=== PATIENT | male | born 1980 | race Caucasian/White ===

== ENCOUNTER 2017-10-14 10:06 | Emergency (ER) | payer OTHER ==
[~2017-10-14] VITALS: Ht 177.8 cm; Wt 86.2 kg
[2017-10-14 11:46] LABS: ABSOLUTE BASOPHIL COUNT 0.1 /CUMM (0.0-0.2); ABSOLUTE EOSINOPHIL COUNT 0.2 /CUMM (0.0-0.7); ABSOLUTE GRANULOCYTE CT 4.4 /CUMM (1.4-6.5); ABSOLUTE MONOCYTE COUNT 0.7 /CUMM (0.10-0.60); BASOPHIL % 0.9 % (0.0-2.0); EOSINOPHIL % 2.8 % (0-5); GRANULOCYTE % 69.1 % (42.2-75.2); HEMATOCRIT 33.6 % (42-52); MEAN CORPUSCULAR HGB CONC 34.6 G/DL (33.0-37.0); MEAN CORPUSCULAR VOLUME 89.7 FL (80.0-94.0); MEAN PLATELET VOLUME 6.8 FL (7.4-10.4); PLATELET COUNT 299 /CUMM (130-400); RBC DISTRIBUTION WIDTH 12.9 % (11.5-14.5); RED BLOOD CELL CT 3.75 /CUMM (4.70-6.10); WHITE BLOOD CELL COUNT 6.4 /CUMM (4.8-10.8)
--- NOTE | 2017-10-14 11:53 | ED NEURO DEFICIT/STROKE ---
History of Present Illness General Chief Complaint: General Adult Stated Complaint: MIGRAINE,ELEVATED BP PER PT Vital Signs & Intake/Output Vital Signs & Intake/Output Vital Signs Date Time Temp Pulse Resp B/P B/P Pulse O2 O2 Flow FiO2 Mean Ox Delivery Rate 10/14 1010 98.6 78 18 196/130 98 Room Air Allergies Coded Allergies: MDX - No Known Allergies - Nka (NO KNOWN ALLERGIES - NKA) (01/17/12) Triage Note: 37 YO MALE TO TRIAGE C/O HIGH BP SINCE THIS AM. STATES HE TAKES LABETOL, STATES TOOK DOSE THIS AM. BP 196/130 IN TRIAGE. DENIES BLURRY VISION. C/O HEADACHE. DENIES CHEST PAIN. Past History Travel History Traveled to [place] past 21 day No Medical History Cardiovascular: hypertension, hyperlipidemia Psychiatric: anxiety Tetanus Vaccine: 02/12/12 Surgical History Surgical History: non-contributory Psychosocial History What is your primary language Pakistani Tobacco Use: Never used Progress Plan of Care: Orders Procedure Date/time Status CT HEAD WO IV CONTRAST 10/14 1152 Active URINALYSIS 10/14 1126 Active TROPONIN LEVEL 10/14 1126 Active COMPREHENSIVE METABOLIC PANEL 10/14 1126 Active CBC WITHOUT DIFFERENTIAL 10/14 1126 Complete EKG 10/14 1010 Active Current Medications Sig/Micah Start time Last Medication Dose Stop Time Status Admin Labetalol HCl 10 MG ONCE ONE 10/14 1200 UNVr (Trandate) 10/14 1201 Laboratory Tests 10/14/17 1149: Urine Color Pending, Urine Clarity Pending, Urine pH Pending, Ur Specific [place] Pending, Urine Protein Pending, Urine Ketones Pending, Urine Nitrite Pending, Urine Bilirubin Pending, Urine Urobilinogen Pending, Ur Leukocyte Esterase Pending, Ur Microscopic Pending, Urine Hemoglobin Pending, Urine Glucose Pending 10/14/17 1136: Sodium Pending, Potassium Pending, Chloride Pending, Carbon Dioxide Pending, Anion Gap Pending, BUN Pending, Creatinine Pending, BUN/Creatinine Ratio Pending , Glucose Pending, Calcium Pending, Total Bilirubin Pending, AST Pending, ALT Pending, Alkaline Phosphatase Pending, Troponin I Pending, Total Protein Pending , Albumin Pending, Globulin Pending, Albumin/Globulin Ratio Pending, CBC w Diff NO MAN DIFF REQ, RBC 3.75 L, MCV 89.7, MCH 31.0, MCHC 34.6, RDW 12.9, MPV 6.8 L, Gran % 69.1, Lymphocytes % 15.8 L, Monocytes % 11.4 H, Eosinophils % 2.8, Basophils % 0.9, Absolute Granulocytes 4.4, Absolute Lymphocytes 1.0 L, Absolute Monocytes 0.7 H, Absolute Eosinophils 0.2, Absolute Basophils 0.1 Departure Departure Condition: Stable Referrals: Trina Veliz MD (PCP/Family) Departure Forms: Customer Survey General Discharge Information
--- NOTE | 2017-10-14 12:01 | ED HEADACHE COMPLAINT ---
History of Present Illness General Chief Complaint: General Adult Stated Complaint: MIGRAINE,ELEVATED BP PER PT Source: patient, old records Exam Limitations: no limitations Vital Signs & Intake/Output Vital Signs & Intake/Output Vital Signs Date Time Temp Pulse Resp B/P B/P Pulse O2 O2 Flow FiO2 Mean Ox Delivery Rate 10/14 1327 97.9 78 20 180/110 98 Room Air Room Air 10/14 1315 98.2 68 18 205/120 10/14 1315 84 20 205/120 97 Room Air Room Air 10/14 1232 76 182/112 10/14 1209 80 18 174/114 97 Room Air Room Air 10/14 1208 80 18 174/114 10/14 1010 98.6 78 18 196/130 98 Room Air Allergies Coded Allergies: MDX - No Known Allergies - Nka (NO KNOWN ALLERGIES - NKA) (01/17/12) Reconcile Medications Amlodipine Besylate 10 MG TABLET 1 TAB PO DAILY HIGH BLOOD PRESSURE (Reported ) Amlodipine Besylate 5 MG TABLET 1 TAB PO DAILY htn Atorvastatin Calcium 40 MG TABLET 1 TAB PO DAILY HIGH CHOLESTROL (Reported) Fenofibrate 160 MG TABLET 1 TAB PO DAILY HIGH BLOOD PRESSURE (Reported) Labetalol HCl 200 MG TABLET 1 TAB PO BID HIGH BLOOD PRESSURE (Reported) Triage Note: 37 YO MALE TO TRIAGE C/O HIGH BP SINCE THIS AM. STATES HE TAKES LABETOL, STATES TOOK DOSE THIS AM. BP 196/130 IN TRIAGE. DENIES BLURRY VISION. C/O HEADACHE. DENIES CHEST PAIN. Triage Nurses Notes Reviewed? yes Onset: Abrupt Duration: minute(s): Timing: multiple episodes today Quality/Severity: moderate, throbbing Severity Numbers: 7 Head Injury Location: occipital (NO TRAUMA) Modifying Factors: Worsens With: movement. HPI: 37 year old male patient with past medical history of hypertension presents to the ED with high blood pressure and headache for one day. He states that he is normally in the 140s systolic and that currently it is in the 200s. He describes his headache as an bandlike intermittent throbbing pain on his occipital lobe that lasts for about 30 minutes each episode that does not radiate anywhere, worsens with movement, and improves with tyelnol and coffee from 7 to 2/10. He also has associated light sensitivity with each episode. He denies chest pain, dizziness, light headedness, shortness of breath, nausea, vomiting, fevers, chills, nightsweats, runny nose, tearing, worse pain of his life. Past History Travel History Traveled to [place] past 21 day No Medical History Any Pertinent Medical History? see below for history Cardiovascular: hypertension, hyperlipidemia Psychiatric: anxiety Tetanus Vaccine: 02/12/12 Surgical History Surgical History: non-contributory Psychosocial History What is your primary language Qatari Tobacco Use: Never used Daily Tobacco Use Amount/Type: =< 4 Cigarettes daily (denies use) ETOH Use: denies use Illicit Drug Use: marijuana (medical, monthly) Family History Family History, If Any: Relation not specified for: FH: heart attack FH: HTN (hypertension) Hx Contributory? No Review of Systems Review of Systems Constitutional: Denies: chills, fever. Eyes: Denies: see HPI. Ears, Nose, Throat, Mouth: Reports: no symptoms. Respiratory: Reports: no symptoms. Cardiovascular: Reports: no symptoms. Gastrointestinal/Abdominal: Denies: abdominal pain, constipation, diarrhea, nausea, vomiting. Genitourinary: Denies: frequency, pain. Musculoskeletal: Denies: joint pain, muscle pain. Skin: Denies: rash. Neurological/Psychological: Reports: see HPI. Hematologic/Endocrine: Reports: no symptoms. Endocrine: Reports: no symptoms. Immunologic/Allergic: Reports: no symptoms. All Other Systems: Reviewed and Negative Physical Exam Physical Exam General Appearance: no apparent distress, alert, awake Head: atraumatic, no tenderness to palpation of his right occipital lobe, right temporal artery is pulsating Eyes: Bilateral: normal appearance. Ears, Nose, Throat: normal pharynx, normal ENT inspection Neck: normal inspection Respiratory: normal breath sounds, no respiratory distress Cardiovascular: regular rate/rhythm Back: normal inspection Extremities: normal inspection, normal range of motion, no edema Psychiatric: awake, alert, oriented x 3 Cranial Nerves: normal hearing, normal speech, PERRL Coordination/Gait: normal finger to nose, normal gait Motor/Sensory: no motor/sensory deficits Skin: intact, normal color Core Measures Sepsis Present: No Sepsis Focused Exam Completed? No Progress Differential Diagnosis: carotid dissection, cav sinus thromb, cluster GONZALEZ, encephalitis, IC mass/tumor, intracranial Hem., meningitis, migraine GONZALEZ, musculoskeletal pain, sinusitis, SSS thrombosis, subarach. Hem., tension GONZALEZ, temporal arteritis, TMJ syndrome, viral cephalgia, PSEUDOTUMOR CEREBRI Plan of Care: Orders Procedure Date/time Status URINALYSIS 10/14 112 Complete TROPONIN LEVEL 10/14 112 Complete COMPREHENSIVE METABOLIC PANEL 10/14 112 Complete CBC WITHOUT DIFFERENTIAL 10/14 112 Complete EKG 10/14 1010 Active Laboratory Tests 10/14/17 1149: Urine Color STRAW, Urine Clarity CLEAR, Urine pH 6.0, Ur Specific [place] 1.020, Urine Protein 100 H, Urine Ketones NEG, Urine Nitrite NEG, Urine Bilirubin NEG, Urine Urobilinogen 0.2, Ur Leukocyte Esterase NEG, Ur Microscopic SEDIMENT EXAMINED, Urine RBC 3-5, Ur Epithelial Cells RARE, Urine Hemoglobin SMALL H, Urine Glucose NEG 10/14/17 1136: Anion Gap 13, Estimated GFR 16 L, BUN/Creatinine Ratio 11.5, Glucose 87, Calcium 9.3, Total Bilirubin 0.5, AST 20, ALT 25, Alkaline Phosphatase 42, Troponin I 0.03, Total Protein 6.7, Albumin 3.7, Globulin 3.0, Albumin/Globulin Ratio 1.2, CBC w Diff NO MAN DIFF REQ, RBC 3.75 L, MCV 89.7, MCH 31.0, MCHC 34.6, RDW 12.9, MPV 6.8 L, Gran % 69.1, Lymphocytes % 15.8 L, Monocytes % 11.4 H, Eosinophils % 2.8, Basophils % 0.9, Absolute Granulocytes 4.4, Absolute Lymphocytes 1.0 L, Absolute Monocytes 0.7 H, Absolute Eosinophils 0.2, Absolute Basophils 0.1 Diagnostic Imaging: Viewed by Me: CT Scan. Discussed w/RAD: CT Scan. Radiology Impression: PATIENT: JONATHAN SIMPSON JR PRESENT AGE: 37 PATIENT ACCOUNT NO: [id number] : 78 LOCATION: [facility] ORDERING PHYSICIAN: Richy DODD SERVICE DATE: 10/14/17 EXAM TYPE : CAT - CT HEAD WO IV CONTRAST EXAMINATION: CT HEAD WITHOUT CONTRAST CLINICAL INFORMATION: Headache. Hypertension. COMPARISON: Head CT 02/18/2017. TECHNIQUE: Contiguous axial imaging was performed from the skull base to vertex without intravenous administration of contrast. DLP: 621 mGy-cm. FINDINGS: There is no intracranial hemorrhage, large infarction, or mass lesion. There is no extra- axial collection. The ventricles are normal in size and configuration without evidence of hydrocephalus. The visualized paranasal sinuses are clear. The mastoids and middle ear cavities are clear. There are atheromatous changes along the intradural vertebral arteries. IMPRESSION: No acute intracranial abnormality identified. DICTATED BY: Yonas Costello MD DATE/TIME DICTATED:10/14/171225 MANUFACTURING ENGINEERING TECHNICIAN:SHWETA DATE/TIME TRANSCRIBED:10/14/171225 CONFIDENTIAL, DO NOT COPY WITHOUT APPROPRIATE AUTHORIZATION. <Electronically signed in Other Vendor System> SIGNED BY: Yonas Costello MD 10/14/17 1232 Initial ED EKG: normal sinus rhythm, rate (80) Departure Departure Disposition: HOME OR SELF CARE Condition: Stable Clinical Impression Primary Impression: Hypertensive urgency Secondary Impressions: Chronic kidney disease Referrals: Alejandro EUGENE,Kaiden Veliz MD,Trina (PCP/Family) Additional Instructions: You need to follow-up with your primary care doctor. You need to follow-up with Kaiden Allen insurance verification representative. You have an appointment this Friday at 3:30 PM at [address] [place] [address] in [place] OCTOBER 17. You have chronic kidney disease and could potentially end up on dialysis. You're leaving AGAINST MEDICAL ADVICE. You understand the risks of leaving AGAINST MEDICAL ADVICE. Risk of . Return to the emergency room immediately if any concerns worsening symptoms. Please go over all results of today's visit with your primary care doctor. Contact your primary care doctor to let them know you were here in the emergency room. There may be nonspecific findings which may not be related to your visit today here in the emergency room but may require further evaluation and chronic monitoring by your primary care doctor. If you had a laceration today the chance of foreign body always remains. You should follow-up with your primary care doctor for recheck in 3-5 days for a wound check. If you had an x-ray done there is a chance that a fracture could have been missed on initial read and you should follow-up with your primary care doctor for repeat x-rays if symptoms persist. If your blood pressure was elevated here in the emergency room please have rechecked by [facility] primary care doctor within the next 48. If you were prescribed a narcotic here in the emergency room or any type of controlled substances you're not allowed to drive while taking this medication or operate any type of heavy machinery. Narcotics can make you feel lightheaded dizziness nausea and can cause constipation. You may need to tow picker a stool softener. Thank you for choosing [facility] emergency room. Please return to the emergency room immediately if you have any other concerns worsening of symptoms. Departure Forms: Customer Survey General Discharge Information Prescriptions: Current Visit Scripts Amlodipine Besylate 1 TAB PO DAILY #30 TAB Comments 10/14/2017 2:38:49 PM Patient signed out AGAINST MEDICAL ADVICE. I spoke with the patient's primary care doctor jc. I spoke with nephrology doctor ciara. I was able to get him short interval follow-up this Friday with nephrology and his primary care doctor next week. I exaplined to the patient that his blood pressures is dangerously high and he is in renal failure that may require dialysis. Patient does not want to stay. Patient understands the risks of leaving AGAINST MEDICAL ADVICE. He is mentally competent and able to make his own medical decisions. Lots of time was spent managing this patient and speaking with his doctors and trying to convince him to stay. He was reevaluated multiple times. He does not want to stay here. He will follow up as instructed. Prescription for amlodipine was sent to the pharmacy for him. He understands that he could potentially . Case was case was discussed with Dr. Ayon.iscussed with dr ayon.
--- NOTE | 2017-10-14 12:32 | CT SCAN REPORT ---
EXAMINATION: CT HEAD WITHOUT CONTRAST CLINICAL INFORMATION: Headache. Hypertension. COMPARISON: Head CT 02/18/2017. TECHNIQUE: Contiguous axial imaging was performed from the skull base to vertex without intravenous administration of contrast. DLP: 621 mGy-cm. FINDINGS: There is no intracranial hemorrhage, large infarction, or mass lesion. There is no extra-axial collection. The ventricles are normal in size and configuration without evidence of hydrocephalus. The visualized paranasal sinuses are clear. The mastoids and middle ear cavities are clear. There are atheromatous changes along the intradural vertebral arteries. IMPRESSION: No acute intracranial abnormality identified.
[2017-10-14 13:27] VITALS: BP 180/110
[2017-10-14] MEDS ORDERED: LABETALOL HCL200 M1 PO (14:30)
[2017-10-14] MEDS ORDERED: FENOFIBRATE160 M1 PO (14:31)
[2017-10-14] MEDS ORDERED: AMLODIPINE BESY10 M1 PO (14:31)
[2017-10-14] MEDS ORDERED: ATORVASTATIN CA40 M1 PO (14:31)
[2017-10-14] MEDS ORDERED: AMLODIPINE BESYL5 M1 PO (14:38)
== END 2017-10-14 14:32 | disposition left against medical advice (07) ==
LOC: ERH 10:06
PROVIDERS: Physician Assistant Medical
DX: I10 Essential (primary) hypertension (principal); N18.9 Chronic kidney disease, unspecified
CPT/HCPCS: 81001; 93005; 93010; 96374; 96376